=== PATIENT | female | born 1995 | race African-American/Black ===

== ENCOUNTER 2016-08-21 09:05 | Emergency (ER) | payer MEDICAID ==
[~2016-08-21] VITALS: Ht 160 cm; Wt 85.0 kg
[~2016-08-21 09:05] MED LIST: ALBUTEROL INHAL
[2016-08-21 12:45] LABS: CLARITY URINE CLEAR (CLEAR); COLOR URINE YELLOW (YELLOW); GLUCOSE URINE NEGATIVE (NEGATIVE); KETONES URINE NEGATIVE (NEGATIVE); LEUKOCYTE ESTERASE URINE 2+ (NEGATIVE); NITRITE URINE NEGATIVE (NEGATIVE); OCCULT BLOOD URINE NEGATIVE (NEGATIVE); PH URINE 7.5 (4.5-8.0); PROTEIN URINE NEGATIVE (NEGATIVE); SPECIFIC GRAVITY URINE 1.011 (1.005-1.030)
[2016-08-21 13:08] LABS: BACTERIA URINE NONE SEEN; RBC URINE NONE SEEN /hpf (0-2); SQUAMOUS EPITHELIAL CELL URINE FEW /lpf (RARE/1+)
[2016-08-21 14:00] VITALS: BP 124/88
[2016-08-21] MEDS ORDERED: FLUCONAZOLE 100MG TABLET PO ONE (14:00)
[2016-08-21] MEDS ORDERED: FLUCONAZOLE 150MG TABLET PO NR (14:45)
[2016-08-23 04:12] LABS: CHLAMYDIA TRACHOMATIS NAA Negative (Negative); NEISSERIA GONORRHOEAE NAA Negative (Negative)
== END 2016-08-21 14:00 | disposition home or self-care (01) ==
LOC: ER 12:57
DX: B37.3 Candidiasis of vulva and vagina (principal); J45.909 Unspecified asthma, uncomplicated; Z88.8 Allergy status to other drugs, medicaments and biological substances
CPT/HCPCS: 81001; 81025; 87210; 87491; 87591; 99284

== ENCOUNTER 2017-12-08 16:59 | Emergency (ER) | payer MEDICAID ==
[~2017-12-08] VITALS: Ht 160 cm; Wt 85.0 kg
[2017-12-08 17:41] VITALS: BP 133/81
== END 2017-12-08 18:16 | disposition home or self-care (01) ==
LOC: ER 16:59
DX: S30.810A Abrasion of lower back and pelvis, initial encounter (principal); J45.909 Unspecified asthma, uncomplicated; V79 Bus occupant injured in other and unspecified transport accidents; Y93.89 Activity, other specified; Y92.89 Other specified places as the place of occurrence of the external cause; Y99.8 Other external cause status; Z88.8 Allergy status to other drugs, medicaments and biological substances
CPT/HCPCS: 99281

== ENCOUNTER 2018-05-13 18:27 | Emergency (ER) | payer MEDICAID ==
[~2018-05-13] VITALS: Ht 172.7 cm; Wt 89.0 kg
[2018-05-13] MEDS ORDERED: IBUPROFEN 600MG TABLET PO ONE (22:15)
[2018-05-14 00:01] LABS: BASOPHILS % 0.4 % (0.0-2.0); EOSINOPHILS % 2.3 % (0.0-5.0); HEMATOCRIT. 38.3 % (36.0-48.0); HEMOGLOBIN. 12.8 g/dL (12.0-16.0); MEAN CORPUSCULAR HEMOGLOBIN 29.2 pg (28.0-32.0); MEAN CORPUSCULAR VOLUME 87.3 fL (81.0-99.0); MEAN PLATELET VOLUME 8.8 fl (7.4-10.4); MONOCYTES % 5.3 % (2.0-8.0); PLATELET 236 x1000/uL (130-400); RED BLOOD CELL COUNT 4.39 mill/uL (4.2-5.4); RED CELL DISTRIBUTION WIDTH 13.7 % (11.6-14.6)
[2018-05-14 00:09] LABS: CHLORIDE 105 mEq/L (98-107)
[2018-05-14 00:19] LABS: B-HCG QUANTITATIVE < 1 mIU/mL (<3)
[2018-05-14 02:00] VITALS: BP 104/59
[2018-05-14 02:04] LABS: CLARITY URINE CLOUDY (CLEAR); COLOR URINE YELLOW (YELLOW); KETONES URINE TRACE (NEGATIVE); LEUKOCYTE ESTERASE URINE 2+ (NEGATIVE); NITRITE URINE NEGATIVE (NEGATIVE); OCCULT BLOOD URINE 3+ (NEGATIVE); PH URINE 5.5 (4.5-8.0); PROTEIN URINE NEGATIVE (NEGATIVE); SPECIFIC GRAVITY URINE 1.024 (1.005-1.030)
== END 2018-05-14 02:35 | disposition home or self-care (01) ==
LOC: ER 18:27
DX: N39.0 Urinary tract infection, site not specified (principal); N83.201 Unspecified ovarian cyst, right side; F12.10 Cannabis abuse, uncomplicated; Z88.8 Allergy status to other drugs, medicaments and biological substances
CPT/HCPCS: 36415; 76830; 76856; 81025; 84702; 86850; 86900; 99284

== ENCOUNTER 2018-08-11 08:42 | Emergency (ER) | payer MEDICAID ==
[~2018-08-11] VITALS: Ht 172.7 cm; Wt 86.0 kg
[2018-08-11 10:51] LABS: BASOPHILS % 0.5 % (0.0-2.0); EOSINOPHILS % 3.8 % (0.0-5.0); HEMATOCRIT. 37.3 % (36.0-48.0); HEMOGLOBIN. 12.7 g/dL (12.0-16.0); MEAN CORPUSCULAR HEMOGLOBIN 29.7 pg (28.0-32.0); MEAN CORPUSCULAR VOLUME 87.3 fL (81.0-99.0); MEAN PLATELET VOLUME 8.1 fl (7.4-10.4); NEUTROPHILS % 64.7 % (40.0-76.0); PLATELET 255 x1000/uL (130-400); RED BLOOD CELL COUNT 4.27 mill/uL (4.2-5.4); RED CELL DISTRIBUTION WIDTH 13.4 % (11.6-14.6)
[2018-08-11 10:56] LABS: CHLORIDE 106 mEq/L (98-107)
[2018-08-11 11:06] LABS: B-HCG QUANTITATIVE 502 mIU/mL (<3)
[2018-08-11 13:53] VITALS: BP 132/78
== END 2018-08-11 14:13 | disposition home or self-care (01) ==
LOC: ER 08:42
DX: O20.0 Threatened abortion (principal); O26.891 Other specified pregnancy related conditions, first trimester; J45.909 Unspecified asthma, uncomplicated; Z91.048 Other nonmedicinal substance allergy status; Z3A.01 Less than 8 weeks gestation of pregnancy
CPT/HCPCS: 36415; 76801; 80048; 84702; 86850; 86870; 86900; 99284

== ENCOUNTER 2018-08-21 20:32 | Observation (INO) | payer MEDICAID ==
[~2018-08-21] VITALS: Ht 162.6 cm; Wt 86.2 kg
[2018-08-22 01:36] LABS: BASOPHILS % 0.5 % (0.0-2.0); EOSINOPHILS % 4.4 % (0.0-5.0); HEMATOCRIT. 36.5 % (36.0-48.0); HEMOGLOBIN. 12.2 g/dL (12.0-16.0); MEAN CORPUSCULAR HEMOGLOBIN 29.1 pg (28.0-32.0); MEAN CORPUSCULAR VOLUME 87.4 fL (81.0-99.0); MEAN PLATELET VOLUME 7.7 fl (7.4-10.4); MONOCYTES % 6.6 % (2.0-8.0); NEUTROPHILS % 57.5 % (40.0-76.0); PLATELET 237 x1000/uL (130-400); RED BLOOD CELL COUNT 4.18 mill/uL (4.2-5.4); RED CELL DISTRIBUTION WIDTH 13.6 % (11.6-14.6)
[2018-08-22 01:41] LABS: CLARITY URINE CLEAR (CLEAR); COLOR URINE YELLOW (YELLOW); KETONES URINE NEGATIVE (NEGATIVE); LEUKOCYTE ESTERASE URINE TRACE (NEGATIVE); NITRITE URINE NEGATIVE (NEGATIVE); OCCULT BLOOD URINE 3+ (NEGATIVE); PROTEIN URINE NEGATIVE (NEGATIVE); SPECIFIC GRAVITY URINE 1.016 (1.005-1.030); UROBILINOGEN URINE 0.2 E.U./dL (0.2-1.0)
[2018-08-22] MEDS ORDERED: SODIUM CHLORIDE 0.9% 1,000 ML IV ONE (04:45)
[2018-08-22] MEDS ORDERED: RHO(D) IMMUNE GLOBULIN 300 MCG/SYR IM ONE ×2 (04:45→15:00)
[2018-08-22] MEDS ORDERED: CEPHALEXIN 250MG CAPSULE PO ONE (05:00)
[2018-08-22 08:00] VITALS: BP 133/74
[2018-08-22 08:05] VITALS: BP 133/74
[2018-08-22] MEDS ORDERED: METH250T26 PO (10:45)
[2018-08-22 12:00] VITALS: BP 137/79
[2018-08-22 13:45] LABS: BASOPHILS % 0.4 % (0.0-2.0); EOSINOPHILS % 3.8 % (0.0-5.0); HEMATOCRIT. 33.5 % (36.0-48.0); HEMOGLOBIN. 11.4 g/dL (12.0-16.0); LYMPHOCYTES % 25.4 % (20.0-50.0); MEAN CORPUSCULAR HEMOGLOBIN 29.6 pg (28.0-32.0); MEAN CORPUSCULAR VOLUME 87.2 fL (81.0-99.0); MONOCYTES % 8.3 % (2.0-8.0); NEUTROPHILS % 62.1 % (40.0-76.0); PLATELET 246 x1000/uL (130-400); RED BLOOD CELL COUNT 3.84 mill/uL (4.2-5.4); RED CELL DISTRIBUTION WIDTH 13.5 % (11.6-14.6)
[2018-08-22 13:52] LABS: CHLORIDE 107 mEq/L (98-107)
[2018-08-22 15:11] VITALS: BP 137/79
[2018-08-22] MEDS ORDERED: METHOTREXATE SODIUM/PF 50 MG/2 ML VIAL IM ONE (15:30)
[2018-08-22 16:00] VITALS: BP 122/82
== END 2018-08-22 17:06 | disposition home or self-care (01) ==
LOC: ER 20:32 → INTOOBSV 08-22 04:42 → 6EST 08-22 04:42 → ENRESERV 08-22 07:05
PROVIDERS: ADMIT Specialist; ATTEND Specialist
DX: O03.9 Complete or unspecified spontaneous abortion without complication (principal); O00.90 Unspecified ectopic pregnancy without intrauterine pregnancy; O10.911 Unspecified pre-existing hypertension complicating pregnancy, first trimester; J45.909 Unspecified asthma, uncomplicated; O34.81 Maternal care for other abnormalities of pelvic organs, first trimester; N83.201 Unspecified ovarian cyst, right side; O23.41 Unspecified infection of urinary tract in pregnancy, first trimester; O99.511 Diseases of the respiratory system complicating pregnancy, first trimester; Z3A.08 8 weeks gestation of pregnancy
CPT/HCPCS: 36415; 76801; 76817; 80053; 81003; 81025; 84702; 85025; 86850; 86870; 86900; 86901; 87086; 90384; 96372; 99285; G0378; J7030; J9260; 96361